=== PATIENT | female | born 2005 | race Caucasian/White ===

== ENCOUNTER 2024-11-20 09:03 | Emergency (ER) | payer MEDICAID ==
[~2024-11-20] VITALS: Ht 162.6 cm; Wt 220.0 kg
[2024-11-20 09:05] VITALS: O2SAT 99
[2024-11-20] MEDS: MORPHINE SULFATE 4 MG/ML INJ (FOR IV/IM USE) IV ONE (09:19)
[2024-11-20 09:25] LABS: BASOPHILS % 0.5 % (0.0-2.0); DIFFERENTIAL COMMENT 0; EOSINOPHILS % 2.7 % (0.0-5.0); HEMATOCRIT. 42.2 % (36.0-48.0); HEMOGLOBIN. 14.1 g/dL (12.0-16.0); LYMPHOCYTES % 42.4 % (20.0-50.0); MEAN CORPUSCULAR HEMOGLOBIN 25.7 pg (28.0-32.0); MEAN CORPUSCULAR HGB CONC 33.5 g/dL (31.0-37.0); MEAN CORPUSCULAR VOLUME 76.9 fL (81.0-99.0); MEAN PLATELET VOLUME 8.1 fl (7.4-10.4); MONOCYTES % 5.7 % (2.0-8.0); NEUTROPHILS % 48.7 % (40.0-76.0); PLATELET 304 x1000/uL (130-400); RED BLOOD CELL COUNT 5.49 mill/uL (4.2-5.4); RED CELL DISTRIBUTION WIDTH 13.2 % (11.6-14.6); WHITE BLOOD COUNT 8.2 x1000/uL (4.5-11.0)
[2024-11-20 09:36] LABS: CARBON DIOXIDE 20 mEq/L (21-32); CHLORIDE 105 mEq/L (98-107); POTASSIUM 3.6 mEq/L (3.5-5.1); SODIUM 138 mEq/L (136-145)
[2024-11-20 09:37] LABS: CALCIUM 9.5 mg/dL (8.7-10.4)
[2024-11-20 09:41] LABS: CREATININE 0.8 mg/dL (0.6-1.0)
[2024-11-20 09:42] LABS: GLUCOSE 124 mg/dL (70-105)
[2024-11-20 09:43] LABS: UREA NITROGEN BLOOD 11 mg/dL (9-23)
[2024-11-20 09:47] LABS: HCG SCREEN NEGATIVE
[2024-11-20 10:33] VITALS: BP 116/81; PULSE 82; RESP 13; TEMP 36.7; O2SAT 99
== END 2024-11-20 10:52 | disposition home or self-care (01) ==
LOC: ER 09:03
DX: M25.511 Pain in right shoulder (principal); Z98.890 Other specified postprocedural states
CPT/HCPCS: 99284; 96374; 80048; 84703; 85025; 36415; 73030; J2270